=== PATIENT | female | born 1945 ===

== ENCOUNTER 2020-12-23 07:42 | Outpatient (CLI) | payer OTHER | END 2020-12-23 08:29 | disposition home or self-care (01) | LOC: RAD 07:42 | DX: K63.0 Abscess of intestine (principal) ==

== ENCOUNTER 2021-01-27 08:43 | Outpatient (CLI) | payer OTHER | END 2021-01-27 08:51 | disposition home or self-care (01) | LOC: TOM 08:43 | DX: R19.00 Intra-abdominal and pelvic swelling, mass and lump, unspecified site (principal) ==